=== PATIENT | female | born 1990 | race Caucasian/White ===

== ENCOUNTER 2021-03-02 22:35 | Emergency (ER) | payer OTHER ==
[~2021-03-02] VITALS: Ht 165.1 cm; Wt 65.8 kg
[2021-03-02 22:45] VITALS: BP 102/58
--- NOTE | 2021-03-02 22:57 | NUR ---
AMBULATED TO ED BED 12
--- NOTE | 2021-03-02 22:58 | NUR ---
REPORTS TAKING 20 PILLS OF SEROQUIL UNKOWN STRENGTH APPROX AN HOUR AGO. CURRENTLY PRESENTS LETHARGIC AND COAX4
--- NOTE | 2021-03-02 23:05 | NUR ---
POISON CONTROL CONTACTED AT THIS TIME, CASE# [id number] ADVISED TO MONITOR FOR 6-8 HR OBSERVATION AND ADVISED OF ATAXIA, SOMNELENCE, LETHARGY, WIDENING PUPILS AND DRYING EFFECTS EXPECTED SYMPTOMS. ADVISED TO RUN FULL TOX WORKUP AND LABS, EKG NOW AND AFTER 6HR TO MONITOR FOR CHANGES. ADVISED IF QTC GREATER THAN 500 KEEP ELECTROLYTES ON HIGHER END OF NORMAL RANGE, WELL ADMINISTER BICARB IF QRS GREATER THAN 120. IMPLENT SEIZURE PRECAUTIONS AND MONITOR FOR HYPOTENSION. ADVISED THEY WILL CONTACT LATER FOR FOLLOW UP
--- NOTE | 2021-03-02 23:21 | NUR ---
PT DECLINED BLOOD DRAW AND EKG. EXPLAINED RISK AND BENEFITS WITH PT. PT ADAMENT ABOUT DISCONTINUING CARE AND WISHES TO LEAVE. DR. KEN NOTIFIED.
[2021-03-02 23:25] LABS: BASOPHILS # (AUTO) 0.1 K/uL (0.00-0.22); BASOPHILS % (AUTO) 0.8 % (0.0-2.0); EOSINOPHILS % (AUTO) 0.5 % (0.0-4.0); HEMATOCRIT 36.8 % (36-48); HEMOGLOBIN 12.1 g/dL (12.0-16.0); LYMPHOCYTES % (AUTO) 20.2 % (20.5-51.1); MEAN CORPUSCULAR HEMOGLOBIN 31 pg (27-31); MEAN CORPUSCULAR HGB CONC 33 g/dL (33-37); MEAN CORPUSCULAR VOLUME 92.9 fL (80-94); MONOCYTES # (AUTO) 0.5 K/uL (0.8-1.0); MONOCYTES % (AUTO) 5.5 % (1.7-9.3); NEUTROPHILS # (AUTO) 7.1 K/uL (1.8-7.7); PLATELET COUNT (AUTO) 260 K/uL (140-450); RED BLOOD CELL COUNT(AUTO) 3.96 MIL/uL (4.20-5.40); RED CELL DISTRIBUTION WIDTH 14.5 % (11.6-13.7); WHITE BLOOD COUNT (AUTO) 9.7 K/uL (4.8-10.8)
--- NOTE | 2021-03-02 23:30 | NUR ---
DR KEN SPOKE WITH PATIENT AND ADVISED RISKS AND POTENTIAL COMPLICATIONS OF REFUSING CARE. PATIENT STILL PERSISTENT THAT SHE WISHES TO GO HOME. WHEN NURSE ASKED WHY SHE DID NOT WANT TO BE TREATED SHE STATED SHE DID NOT NEED OR WANT TO BE IN THE HOSPITAL AND WANTED TO GO HOME. LAY UNDERSTOOD RISKS OF LEAVING AMA, REFUSED TO SIGN AMA FORM WELL. CHARGE NURSE WITNESS REFUSAL AND PATIENT LEFT FACILITY COAX4 AMBULATORY. ADVISED TO RETURN IF NECESSARY.
[2021-03-02 23:42] VITALS: BP 102/58
[2021-03-02 23:51] LABS: ALBUMIN 3.7 g/dL (3.4-5.0); ANION GAP 15.3 (8-16); CARBON DIOXIDE 24.3 mmol/L (21-32); CREATININE 0.7 mg/dL (0.6-1.3); POTASSIUM 3.6 mmol/L (3.5-5.1); TOTAL BILIRUBIN 0.1 mg/dL (0.0-1.0)
[2021-03-02 23:54] LABS: SALICYLATE < 2.8 mg/dL (2.8-20.0)
[2021-03-03] LABS: CREATINE KINASE MB 0.6 ng/mL (0-3.6)
== END 2021-03-02 23:28 | disposition left against medical advice (07) ==
LOC: MED 22:35
DX: T43.595A Adverse effect of other antipsychotics and neuroleptics, initial encounter (principal); Y92.89 Other specified places as the place of occurrence of the external cause
CPT/HCPCS: 36415; 80053; 82550; 82553; 84484; 85025; 93005; 99284; G0480; G0482